=== PATIENT | male | born 1950 | race Hispanic/Latino ===

== ENCOUNTER 2016-07-23 09:23 | Outpatient (CLI) | payer OTHER ==
[2016-07-23 10:59] LABS: ALT (SGPT) 78 U/L (8-55); AST (SGOT) 68 U/L (5-34); Albumin 3.9 g/dL (3.4-4.8); Alkaline Phosphatase 97 U/L (40-150); Anion Gap 13 mmol/L (10-20); BUN (Urea Nitrogen) 19 mg/dL (8.4-25.7); Bilirubin, Total 1.2 mg/dL (0.2-1.2); Calc. Creatinine Clearance 0 mL/min (70-130); Calcium 9.2 mg/dL (7.8-10.44); Carbon Dioxide 23 mmol/L (23-31); Cardiac Risk 4.1 (Less than 4.5); Chloride 106 mmol/L (98-107); Cholesterol 106 mg/dl (< 200 Desired); Estimated GFR-MDRD Greater than 90; Globulin 4.7 g/dL (2.4-3.5); Glucose 91 mg/dL (80-115); HDL Cholesterol 26 mg/dL (>60 Neg Risk); LDL Cholesterol, Calculated 44 mg/dL; Potassium 4.1 mmol/L (3.5-5.1); Protein, Total 8.6 g/dL (5.8-8.1); Sodium 138 mmol/L (136-145); Triglycerides 180 mg/dL (Less than 150)
[2016-07-23 13:19] LABS: #Basophils 0.1 thou/uL (0.0-0.2); #Eosinphils 0.3 thou/uL (0.0-0.7); #Lymphocytes 2.6 thou/uL (1.20-3.40); #Monocytes 0.6 thou/uL (0.11-0.59); #Neutrophils 2.8 thou/uL (1.40-6.50); %Basophils 1.4 % (0.0-1.0); %Lymphocytes 43.4 % (21.0-51.0); %Monocytes 6.9 % (0.0-10.0); %Neutrophils 44.3 % (42.0-75.0); Hemoglobin 14.9 g/dL (14.0-18.0); Mean Corpuscular HGB CONC 33.3 g/dL (32.0-36.0); Mean Corpuscular Hemoglobin 29.9 pg (27.0-31.0); Mean Corpuscular Volume 89.7 fl (80.0-94.0); Mean Platelet Volume 12.7 fL (7.4-10.4); PLT Morphology Comment Appears Decreased; Platelet Count 115 thou/uL (130-400); RBC Distribution Width 11.5 % (11.5-14.5); Red Blood Cell (RBC) Count 5.03 mill/uL (4.70-6.10); White Blood Cell (WBC) Count 6.3 thou/uL (4.8-10.8)
== END 2016-07-23 09:24 | disposition home or self-care (01) ==
LOC: MADLABBHPM 09:23
PROVIDERS: ATTEND Family Medicine
DX: K05.00 Acute gingivitis, plaque induced (principal); D69.6 Thrombocytopenia, unspecified; I10 Essential (primary) hypertension
CPT/HCPCS: 36415; 80053; 80061; 85025

== ENCOUNTER 2019-02-10 15:14 | Emergency (ER) | payer MEDICARE ==
--- NOTE | 2019-02-10 15:39 | RAD ---
EXAM: Chest PA and lateral: HISTORY: Cough COMPARISON: none FINDINGS: Lung james are clear. Vascular markings are normal. Heart and mediastinum appear unremarkable. Osseous structures are unremarkable. IMPRESSION: Unremarkable chest
== END 2019-02-10 17:22 | disposition home or self-care (01) ==
LOC: MADERS 15:14
DX: J06.9 Acute upper respiratory infection, unspecified (principal); I10 Essential (primary) hypertension
CPT/HCPCS: 71046; J7620

== ENCOUNTER 2021-12-05 10:55 | Emergency (ER) | payer MEDICARE ==
[2021-12-05 11:47] LABS: #Basophils 0.1 thou/uL (0.0-0.2); #Monocytes 0.5 thou/uL (0.11-0.59); #Neutrophils 5.8 thou/uL (1.40-6.50); %Basophils 1.3 % (0.0-1.0); %Eosinophils 0.4 % (0.0-10.0); %Lymphocytes 13.3 % (21.0-51.0); %Monocytes 6.4 % (0.0-10.0); %Neutrophils 78.6 % (42.0-75.0); Hemoglobin 14.5 g/dL (14.0-18.0); Mean Corpuscular HGB CONC 31.2 g/dL (32.0-36.0); Mean Corpuscular Hemoglobin 27.7 pg (27.0-31.0); Mean Platelet Volume 11.6 fL (7.4-10.4); Platelet Count 138 thou/uL (130-400); RBC Distribution Width 12.6 % (11.5-14.5); Red Blood Cell (RBC) Count 5.23 mill/uL (4.70-6.10); White Blood Cell (WBC) Count 7.4 thou/uL (4.8-10.8)
[2021-12-05 11:59] LABS: Bilirubin Negative (Negative); Blood, Urine Moderate (Negative); Clarity Clear (Clear); Glucose, Urine (Dipstick) Negative (Negative); Ketone, Urine Negative (Negative); Leukocyte Negative (Negative); Nitrite Negative (Negative); Protein, Urine (Dipstick) Negative (Neg-Trace); Urobilinogen 0.2 mg/dL (Less than 2)
[2021-12-05 12:00] LABS: Anion Gap 14 mmol/L (10-20); BUN (Urea Nitrogen) 23 mg/dL (8.4-25.7); Calc. Creatinine Clearance 0 mL/min (70-130); Calcium 9.7 mg/dL (7.8-10.44); Carbon Dioxide 26 mmol/L (23-31); Chloride 99 mmol/L (98-107); Estimated GFR 59; Glucose 111 mg/dL (80-115); Potassium 4.9 mmol/L (3.5-5.1); Sodium 134 mmol/L (136-145)
[2021-12-05 12:08] LABS: Bacteria/HPF Rare-Few HPF (None Seen); Mucous/LPF Few LPF (<2+); Squamous Epithelial 0-3 HPF (0-3); Transitional Epithelial 0-3 HPF (None Seen); WBC/HPF None Seen HPF (0-3)
[2021-12-05] MEDS ORDERED: Sodium Chloride 0.9% 500 ML ONE (12:25)
[2021-12-05] MEDS ORDERED: Tamsulosin HCl 0.4 MG CAP ONE (12:25)
== END 2021-12-05 13:25 | disposition home or self-care (01) ==
LOC: MADERS 10:55
DX: R33.9 Retention of urine, unspecified (principal); I10 Essential (primary) hypertension
CPT/HCPCS: 36415; 51702; 80048; 81003; 81015; 85025; J7030

== ENCOUNTER 2022-04-05 17:03 | Emergency (ER) | payer MEDICARE ==
[2022-04-05] MEDS ORDERED: Ondansetron PF 4 MG/2 ML Vial ONE (18:11)
[2022-04-05] MEDS ORDERED: Sodium Chloride 0.9% 1,000 ML ONE ×2 (18:11→19:43)
[2022-04-05] MEDS ORDERED: Metoclopramide HCl 10 MG TAB ONE (18:11)
[2022-04-05] MEDS ORDERED: Metoclopramide HCl 10 MG/2 ML VIAL ONE (18:12)
[2022-04-05 18:18] LABS: Hemoglobin 15.4 g/dL (14.0-18.0); Mean Corpuscular HGB CONC 31.9 g/dL (32.0-36.0); Mean Corpuscular Volume 78.3 fl (78.0-98.0); Mean Platelet Volume 7.2 fL (7.4-10.4); Platelet Count 369 10x3/uL (130-400); RBC Distribution Width 17.4 % (11.5-14.5); Red Blood Cell (RBC) Count 6.16 mill/uL (4.70-6.10); White Blood Cell (WBC) Count 8.7 10x3/uL (4.8-10.8)
[2022-04-05 18:25] LABS: ALT (SGPT) 34 U/L (8-55); AST (SGOT) 177 U/L (5-34); Albumin 3.8 g/dL (3.4-4.8); Alkaline Phosphatase 151 U/L (40-110); Anion Gap 16 mmol/L (10-20); BUN (Urea Nitrogen) 37 mg/dL (8.4-25.7); Bilirubin, Total 4.5 mg/dL (0.2-1.2); Calc. Creatinine Clearance 0 mL/min (70-130); Calcium 8.9 mg/dL (7.8-10.44); Carbon Dioxide 17 mmol/L (23-31); Chloride 90 mmol/L (98-107); Estimated GFR 79; Globulin 4.1 g/dL (2.4-3.5); Glucose 103 mg/dL (80-115); Potassium 4.4 mmol/L (3.5-5.1); Protein, Total 7.9 g/dL (5.8-8.1)
[2022-04-05 18:38] LABS: Band 5 % (5-11); Lymphocytes 5 % (21-51); MDiff Complete? YES; Monocytes 3 % (0-10); Neutrophil 86 % (42-75); Platelet Morphology Comment Appears Adequate; RBC Morphology Normal
[2022-04-05 18:50] LABS: Sodium 119 mmol/L (136-145)
== END 2022-04-05 20:10 | disposition short-term general hospital (02) ==
LOC: MADERS 17:03
DX: E87.1 Hypo-osmolality and hyponatremia (principal); R63.0 Anorexia; E86.0 Dehydration; I10 Essential (primary) hypertension; Z85.05 Personal history of malignant neoplasm of liver; Z79.899 Other long term (current) drug therapy
CPT/HCPCS: 80053; 85025; 96361; 96374; 96375; J2405; J2765; J7050